=== PATIENT | male | born 1985 | race Caucasian/White ===

== ENCOUNTER 2022-11-24 23:17 | Emergency (ER) | payer MEDICAID ==
[~2022-11-24] VITALS: Ht 172.7 cm; Wt 80.0 kg
[2022-11-24 23:26] VITALS: O2SAT 96
[2022-11-25] MEDS ORDERED: SODIUM CHLORIDE 0.9% 1,000 ML IV ONE (00:30)
[2022-11-25] MEDS ORDERED: ONDANSETRON HCL 4MG/2ML INJ IV ONE (00:30)
[2022-11-25] MEDS ORDERED: PANTOPRAZOLE SODIUM 40 MG/VIAL IV ONE (00:30)
[2022-11-25 00:58] LABS: BASOPHILS % 0.3 % (0.0-2.0); EOSINOPHILS % 0.8 % (0.0-5.0); HEMATOCRIT. 39.3 % (42.0-52.0); HEMOGLOBIN. 13.7 g/dL (14.0-18.0); LYMPHOCYTES % 13.2 % (20.0-50.0); MEAN CORPUSCULAR HEMOGLOBIN 29.1 pg (28.0-32.0); MEAN CORPUSCULAR VOLUME 83.3 fL (80.0-94.0); MEAN PLATELET VOLUME 8.6 fl (7.4-10.4); MONOCYTES % 2.9 % (2.0-8.0); NEUTROPHILS % 82.8 % (40.0-76.0); PLATELET 173 x1000/uL (130-400); RED BLOOD CELL COUNT 4.72 mill/uL (4.7-6.1); RED CELL DISTRIBUTION WIDTH 13.9 % (11.6-14.6)
[2022-11-25 01:07] LABS: CHLORIDE 112 mEq/L (98-107)
[2022-11-25 01:13] LABS: ETHANOL BLOOD 168 mg/dL (-10)
[2022-11-25 05:00] VITALS: BP 107/54; PULSE 73; RESP 18; TEMP 97.9
== END 2022-11-25 05:30 | disposition home or self-care (01) ==
LOC: ER 23:17
DX: F10.129 Alcohol abuse with intoxication, unspecified (principal); Y90.6 Blood alcohol level of 120-199 mg/100 ml
CPT/HCPCS: 99283; 80053; 80320; 85025; 36415; J7030; G0480